=== PATIENT | female | born 1985 | race Asian ===

== ENCOUNTER 2021-11-02 09:10 | Inpatient (IN) | payer BC, OTHER ==
[2021-11-02] MEDS: NS w/ Oxytocin 30 units 500 ML IV SCH ×2 (09:21→10:22)
[2021-11-02] MEDS ORDERED: Ondansetron PF 4 MG/2 ML Vial IVP PRN (09:28)
[2021-11-02] MEDS ORDERED: Lidocaine 1% (PF) 30 ML VIAL SC PRN (09:28)
[2021-11-02] MEDS ORDERED: Ibuprofen 800 MG TAB PO PRN (09:28)
[2021-11-02] MEDS ORDERED: Promethazine HCl 25 MG/ML VIAL IM PRN (09:28)
[2021-11-02] MEDS ORDERED: hydrALAZINE 20 MG/ML VIAL SLOW IVP PRN ×2 (09:28→11:39)
[2021-11-02 09:59] LABS: RapidComm Collect By NURSE
[2021-11-02 10:01] LABS: RapidComm Collect By NURSE; pH (Cord, venous) 7.335 (7.250-7.350)
[2021-11-02 10:21] LABS: Hemoglobin 11.7 g/dL (12.0-15.5); Mean Corpuscular HGB CONC 32.6 g/dL (32.0-36.0); Mean Corpuscular Hemoglobin 28.1 pg (27.0-33.0); Mean Corpuscular Volume 86.3 fl (81.6-98.3); Platelet Count 188 10x3/uL (150-450); RBC Distribution Width 13.9 % (11.5-14.5); Red Blood Cell (RBC) Count 4.16 10x6/uL (3.90-5.03); White Blood Cell (WBC) Count 12.6 10x3/uL (3.5-10.5)
[2021-11-02 10:24] VITALS: BMI 31.9
[2021-11-02 10:48] LABS: Hep B Surf Ag Non-Reactive S/CO (NonReactive)
[2021-11-02 10:49] LABS: Syphilis Antibody Nonreactive (Nonreactive); Syphilis Antibody Index 0.05 S/CO (<1.00 Non-Reactive)
[2021-11-02 11:06] LABS: HBSAg Index 0.21 S/CO (0-0.99)
[2021-11-02] MEDS ORDERED: Lanolin Ointment 7 GM TUBE TOP PRN (11:39)
[2021-11-02] MEDS ORDERED: Boostrix 0.5 ML (Tdap) VIAL IM ONE (11:39)
[2021-11-02] MEDS ORDERED: Bisacodyl 10 MG SUPP PR PRN (11:39)
[2021-11-02] MEDS ORDERED: Milk Of Magnesia 30 ML UDCUP PO PRN (11:39)
[2021-11-02 12:16] LABS: SARS-CoV-2 NAA Rapid Test Not Detected (NotDetected)
[2021-11-02] MEDS ORDERED: Ibuprofen 800 MG TAB PO SCH (14:00)
[2021-11-02] MEDS: Acetaminophen 500 MG TAB PO SCH ×2 (16:37→17:59)
[2021-11-02] MEDS: Ferrous Sulfate 325 MG TAB PO SCH (17:59)
[2021-11-02] MEDS: Ibuprofen 800 MG TAB PO SCH (18:00)
[2021-11-03] MEDS: Ibuprofen 800 MG TAB PO SCH ×3 (02:55→18:16)
[2021-11-03] MEDS: Docusate 100 MG CAP PO SCH ×3 (06:23→21:12)
[2021-11-03] MEDS: Acetaminophen 500 MG TAB PO SCH ×4 (06:23→23:41)
[2021-11-03] MEDS: Prenatal Vitamin 1 TAB PO SCH (10:17)
[2021-11-03] MEDS: Ferrous Sulfate 325 MG TAB PO SCH ×2 (10:17→18:18)
[2021-11-04] MEDS: Ibuprofen 800 MG TAB PO SCH ×2 (02:19→12:38)
[2021-11-04] MEDS: Acetaminophen 500 MG TAB PO SCH ×2 (05:43→12:38)
[2021-11-04] MEDS: Ferrous Sulfate 325 MG TAB PO SCH (07:43)
[2021-11-04 08:53] VITALS: BP 118/59; TEMP 98.2
[2021-11-04] MEDS: Prenatal Vitamin 1 TAB PO SCH (08:53)
[2021-11-04] MEDS: Docusate 100 MG CAP PO SCH (08:53)
== END 2021-11-04 14:25 | disposition home or self-care (01) | DRG 806 ==
LOC: CSHLD 09:10 → CSHPP 12:20
PROVIDERS: ADMIT Family Medicine; ATTEND Family Medicine
PROC: 10E0XZZ Delivery of Products of Conception, External Approach (ICD-10-PCS; principal; 2021-11-02)
DX: O32.1XX0 Maternal care for breech presentation, not applicable or unspecified (principal); O98.52 Other viral diseases complicating childbirth; Z37.0 Single live birth; Z3A.38 38 weeks gestation of pregnancy; Z20.822 Contact with and (suspected) exposure to COVID-19; B00.9 Herpesviral infection, unspecified; L40.9 Psoriasis, unspecified; O99.72 Diseases of the skin and subcutaneous tissue complicating childbirth; Z79.899 Other long term (current) drug therapy; Z88.0 Allergy status to penicillin; D64.9 Anemia, unspecified; O90.81 Anemia of the puerperium
CPT/HCPCS: 82805; 85027; 86780; 86850; 86900; 86901; 87340; 99285; J2590; U0002